=== PATIENT | male | born 1930 | race Caucasian/White ===

== ENCOUNTER 2018-06-05 20:50 | Inpatient (IN) | payer MEDICARE, OTHER ==
[2018-06-05 21:29] LABS: #Eosinphils 0.1 thou/uL (0.0-0.7); #Lymphocytes 1.6 thou/uL (1.20-3.40); #Monocytes 0.4 thou/uL (0.11-0.59); #Neutrophils 3.2 thou/uL (1.40-6.50); %Basophils 0.5 % (0.0-1.0); %Eosinophils 2.8 % (0.0-10.0); %Lymphocytes 29.9 % (21.0-51.0); %Neutrophils 58.8 % (42.0-75.0); Hemoglobin 13.3 g/dL (14.0-18.0); Mean Corpuscular HGB CONC 33.8 g/dL (32.0-36.0); Mean Corpuscular Hemoglobin 33.4 pg (27.0-31.0); Mean Corpuscular Volume 98.9 fL (78.0-98.0); Platelet Count 118 thou/uL (130-400); RBC Distribution Width 14.4 % (11.5-14.5); Red Blood Cell (RBC) Count 3.99 mill/uL (4.70-6.10); White Blood Cell (WBC) Count 5.4 thou/uL (4.8-10.8)
[2018-06-05 21:53] LABS: ALT (SGPT) 33 U/L (8-55); AST (SGOT) 27 U/L (5-34); Albumin 4.1 g/dL (3.4-4.8); Alkaline Phosphatase 79 U/L (40-150); Anion Gap 13 mmol/L (10-20); BUN (Urea Nitrogen) 32 mg/dL (8.4-25.7); Bilirubin, Total 0.8 mg/dL (0.2-1.2); Calc. Creatinine Clearance 0 mL/min (70-130); Calcium 8.8 mg/dL (7.8-10.44); Carbon Dioxide 22 mmol/L (23-31); Chloride 108 mmol/L (98-107); Estimated GFR-MDRD 38; Globulin 2.2 g/dL (2.4-3.5); Glucose 130 mg/dL (83-110); Potassium 4.2 mmol/L (3.5-5.1); Protein, Total 6.3 g/dL (5.8-8.1); Sodium 139 mmol/L (136-145)
[2018-06-05 21:54] LABS: CKMB 4.6 ng/mL (0-6.6); Troponin I 0.023 ng/mL (< 0.028)
--- NOTE | 2018-06-05 21:59 | RAD ---
CHEST ONE VIEW: 06/05/18 HISTORY: Dyspnea. FINDINGS: No comparison. The cardiac silhouette is magnified. Pulmonary vasculature is engorged with patchy bilateral perihila r and bibasilar infiltrates. No lobar consolidation or evidence of pneumothorax. Mediastinum is midli ne with aortic calcification. IMPRESSION: Pulmonary vascular congestion with bibasilar infiltrates. No evidence of cardiomegaly. Atherosclerosis. POS: BST
[2018-06-05] MEDS ORDERED: Nitroglycerin 2% Ointment 1 INCH/1 GM Packet ONE (22:02)
[2018-06-05] MEDS ORDERED: Furosemide 40 MG/4 ML VIAL ONE (22:02)
[2018-06-06 00:55] VITALS: BMI 25.9
--- NOTE | 2018-06-06 03:58 | HP ---
DATE OF ADMISSION: 06/05/2018 CHIEF COMPLAINT: Shortness of breath. HISTORIAN: Patient reliable. HISTORY OF PRESENT ILLNESS: This is an 88-year-old male with past medical history of CHF, which was diagnosed a month ago, coronary artery disease, status post cardiac catheterization, hypertension, hyperlipidemia, cholesterol who is presenting with shortness of breath which has been ongoing for the past month. The patient's shortness of breath has been ongoing for a month and in the past 2 weeks, it has progressively gotten worse and that prompted ED visit. Patient states that in addition to the shortness of breath, he also had associated symptoms of chest palpitations and states that his heart rate has always been fast. Per medical records, patient was recently started on carvedilol and patient has not really been compliant with the carvedilol. Per the ED notes, daughter states patient recently had a cardiac catheterization which showed no blockages, and patient actually has an appointment with Dr. Stallworth tomorrow; however, patient developed shortness of breath; therefore, the patient was brought in to the emergency room. Patient denies any fever, nausea , vomiting, chest pain, chills, dizziness, headaches. Patient denies abdominal pain, constipation, diarrhea, hematuria, hematochezia. REVIEW OF SYSTEMS: Positive for shortness of breath and chest palpitations, negative for all other ones that have stated in the HPI. PAST MEDICAL HISTORY: Patient has past medical history of congestive heart failure, hypertension, BPH, heart catheterization in 2018. PAST SURGICAL HISTORY: Patient had heart catheterization 2018. PSYCHIATRIC HISTORY: Patient has history of anxiety and depression. SOCIAL HISTORY: Patient states that he was a former smoker. He quit 10 years ago. The patient denies using alcohol or any illicit drugs. Allergies: Benzodiazipines and penicillins CURRENT MEDICATIONS: The patient takes, 1. Aspirin 81 mg oral. 2. Doxazosin 8 mg a daily. 3. Duloxetine patient takes 60 mg oral daily. 4. Finasteride patient takes 5 mg oral daily. 5. Furosemide patient takes 40 mg daily. 6. Lisinopril patient takes 40 mg daily. 7. Mirtazapine patient takes 15 mg at bedtime. 8. Simvastatin patient takes 40 mg at night. 9. Ranitidine patient takes 150 mg a day. In the ED, patient was given Cardizem IV 50 mg and patient was given nitro transdermal and patient was also given Lasix 40 mg IV push. PHYSICAL EXAMINATION: VITAL SIGNS: In the ED, the patient's blood pressure was 161/113, pulse of 119 , respiratory rate of 24, temperature of 97. On admission, the patient's blood pressure was 113/80, pulse 90, respiratory rate of 28, temperature of 97.8. GENERAL: Patient is lying in bed comfortably, not in acute distress. Patient appears his stated age, very pleasant, alert and oriented x3. HEENT: Normocephalic, atraumatic. Pupils are equally round and reactive to light. Extraocular motors are intact. No scleral icterus is noted. NECK: Trachea is midline, supple. No JVD. RESPIRATORY: Clear to auscultation bilaterally. No wheezing, no rales, no rhonchi is appreciated. The patient has good symmetric chest movement. CARDIOVASCULAR: Patient is slightly tachycardic. Rhythm is irregularly irregular. ABDOMEN: Soft, nontender, nondistended, no pulsatile mass. No peritoneal signs , no rigidity, no guarding, no rebound. EXTREMITIES: The patient has 5/5 in the upper extremity strength and good pulses at the upper extremity. Lower extremity 5/5, lower extremity strength. Full range of motion and good pulses at the dorsalis pedis. No edema noted. NEUROLOGIC: No focal neurologic deficit noted. SKIN: Warm, dry, and intact. PSYCHIATRIC: Patient has normal affect. LABORATORY DATA AND X-RAY FINDINGS: Patient's BNP is 2812. Chemistry: Sodium is 139, potassium is 4.2, chloride is 108, carbon dioxide is 22, BUN is 32, creatinine is 1.73, glucose 130. CBC: White blood cell count is 5.4, hemoglobin is 13.3, hematocrit of 39.4, platelets 118. Chest x-ray showed bibasilar infiltrates with some cardiopulmonary congestion. ASSESSMENT AND PLAN: 1. Acute on chronic systolic heart failure per records, patient had an ejection fraction of 34 on previous echo. At this point, we will get Cardiology consult. The patient has been given IV Lasix. We will continue to monitor the patient. 2. Atrial fibrillation with rapid ventricular response. We will give patient as home dose of carvedilol. We will monitor the patient closely. At this point , patient has received Cardizem 50 mg. We will monitor the patient's heart rate on telemetry. 3. Acute on chronic renal failure. Patient's creatinine at this time is 1.7. Nephrology has been consulted. We will follow Nephrology's recommendations. We will follow up morning BNP. 4. History of hypertension. We will monitor patient's blood pressure closely. We will continue the patient on carvedilol. 5. History of benign prostatic hypertrophy. We will start the patient on his oral BPH medications. At this point, the patient is doing well and patient is stable. 6. Hyperlipidemia. We will continue patient on simvastatin. 7. History of anxiety and depression. Patient is currently stable. We will monitor the patient. MTDD
[2018-06-06] MEDS ORDERED: Melatonin 3 MG TAB PO PRN (04:44)
[2018-06-06 05:33] LABS: Bilirubin Negative (Negative); Blood, Urine Negative (Negative); Glucose, Urine (Dipstick) Negative (Negative); Leukocyte Negative (Negative); Nitrite Negative (Negative); Protein, Urine (Dipstick) Negative (Neg-Trace); Urobilinogen 0.2 mg/dL (0.2-1.0)
[2018-06-06 05:34] LABS: Clarity Clear (Clear)
[2018-06-06 05:39] LABS: RBC/HPF None Seen HPF (0-3); Specific Gravity, Urine 1.007 (1.002-1.036); WBC/HPF None Seen HPF (0-3)
[2018-06-06 05:40] LABS: Bacteria/HPF None Seen HPF (None Seen); Crystals/HPF None Seen HPF (Negative); Hyaline Casts/LPF NONE SEEN LPF (0-3 Hyaline); Other Casts/LPF None Seen LPF (0-3 Hyaline); Renal Epithelial None Seen HPF (0-3); Squamous Epithelial None Seen HPF (0-3); Transitional Epithelial NONE SEEN HPF (0-3); Trichomonas/HPF None Seen HPF (None Seen); Yeast-All Forms None Seen HPF (None Seen)
[2018-06-06 06:22] LABS: #Eosinphils 0.2 thou/uL (0.0-0.7); #Lymphocytes 1.5 thou/uL (1.20-3.40); #Monocytes 0.6 thou/uL (0.11-0.59); #Neutrophils 3.1 thou/uL (1.40-6.50); %Basophils 0.7 % (0.0-1.0); %Eosinophils 3.8 % (0.0-10.0); %Lymphocytes 27.4 % (21.0-51.0); %Monocytes 10.2 % (0.0-10.0); Hemoglobin 12.2 g/dL (14.0-18.0); Mean Corpuscular HGB CONC 33.5 g/dL (32.0-36.0); Mean Corpuscular Hemoglobin 33.2 pg (27.0-31.0); Mean Platelet Volume 8.1 fL (7.4-10.4); Platelet Count 119 thou/uL (130-400); RBC Distribution Width 14.3 % (11.5-14.5); Red Blood Cell (RBC) Count 3.68 mill/uL (4.70-6.10); White Blood Cell (WBC) Count 5.4 thou/uL (4.8-10.8)
[2018-06-06 06:26] LABS: ALT (SGPT) 30 U/L (8-55); AST (SGOT) 22 U/L (5-34); Albumin 3.8 g/dL (3.4-4.8); Alkaline Phosphatase 71 U/L (40-150); Anion Gap 15 mmol/L (10-20); BUN (Urea Nitrogen) 30 mg/dL (8.4-25.7); Calc. Creatinine Clearance 42 mL/min (70-130); Carbon Dioxide 21 mmol/L (23-31); Chloride 107 mmol/L (98-107); Estimated GFR-MDRD 42; Globulin 2.1 g/dL (2.4-3.5); Glucose 108 mg/dL (83-110); Potassium 3.8 mmol/L (3.5-5.1); Protein, Total 5.9 g/dL (5.8-8.1); Sodium 139 mmol/L (136-145)
[2018-06-06] MEDS ORDERED: Acetaminophen 325 MG TAB PO PRN (06:41)
[2018-06-06] MEDS: Lisinopril 20 MG TAB PO SCH (09:46)
[2018-06-06] MEDS: Carvedilol 6.25 MG TAB PO SCH ×2 (09:47→20:47)
[2018-06-06] MEDS ORDERED: guaiFENesin ER 600 MG TAB PO SCH (12:15)
--- NOTE | 2018-06-06 13:20 | CON ---
DATE OF CONSULTATION: 06/06/2018 This encompass 70 minutes time, of that time, greater than 50% of the time was spent with the patient and/or on the patient's unit in the hospital. CONSULTING PHYSICIAN: Dr. Lance from the Hospitalist group. REASON FOR CONSULTATION: Shortness of breath. HISTORY OF PRESENT ILLNESS: This is an 88-year-old male who was admitted to the hospital last night with increasing shortness of breath of about 24 hours duration. He has recently been diagnosed with congestive heart failure. That workup was done at [facility]. He was told his ejection fraction was about 35%. He is upset because he did not have anything that could be fixed with tay ry stenting, pacemaker, etc. He was told this had to be medically managed. He did not tolerate the medical therapy very well. He did not adhere to salt restriction or fluid restriction at home. He i s under the impression that drinking lots of water would be good for him. He does have a previous history of smoking about one to one-half packs per day. He has never been di agnosed with COPD, emphysema, or asthma. PAST MEDICAL HISTORY: 1. Congestive heart failure. 2. Hypertension. 3. Prostatic hypertrophy. PAST SURGICAL HISTORY: Cardiac catheterization. MEDICATIONS PRIOR TO ADMISSION: Doxazosin, aspirin, duloxetine, finasteride, furosemide, lisinopril, mirtazapine, simvastatin, ranitidine. SOCIAL HISTORY: Quit smoking over 10 years ago, quit drinking many years ago. He is a retired manag er. REVIEW OF SYSTEMS: Twelve point review of systems is otherwise negative. PHYSICAL EXAMINATION: VITAL SIGNS: Temperature 98.1, pulse 90, respirations 20, O2 sat 93%, blood pressure 133/96. GENERAL: The patient is awake, alert, very vocal. HEENT: Pupils react. Sclerae anicteric. Oropharynx clear. NECK: Without adenopathy or JVD. CHEST: Clear without wheezing or rhonchi. CARDIAC: S1, S2 regular, without murmur. ABDOMEN: Soft, nontender, nondistended. EXTREMITIES: No clubbing, cyanosis or edema. NEUROLOGIC: Fully intact throughout. LABORATORY DATA: White blood cell count 5.4, hematocrit 36.4, platelet count 119. Sodium 139, potas sium 3.8, chloride 107, CO2 21, BUN 30, creatinine 1.5, glucose 108. BNP 2812. X-RAY FINDINGS: Chest x-ray showed bilateral congestive changes, probably has bilateral small pleura l effusions. ASSESSMENT: 1. Congestive heart failure. 2. Former tobacco abuse. RECOMMENDATIONS: I would recommend treatment of congestive heart failure as you are doing. At some point as an outpatient, he may need to get PFTs to further workup for COPD. Right now, PFTs would no t give an accurate reading due to the patient's pulmonary vascular congestion. The patient has reque sted a second opinion from Cardiology, which I think has been requested by the Hospitalist team. I w ill be happy to see him on an outpatient as needed.
--- NOTE | 2018-06-06 13:37 | PDOC.PN ---
- Subjective Encounter Start Date: 06/06/18 Encounter Start Time: 09:00 -: old records requested/rev Pt seen and examined, chart reviewed in its entirety, this is my first visit with this patient admitted last night by sitecore developer for SOB. Pt described several day history of SOB, increasing cough and whitish sputum production. In Er, noted to be in Afib with RVr, pt denies history of afib prior. Admitted, Cardiology consulted. Pt denies f/C, no N/V/D/C, cotninues to cough up thick whitis phlegm. no blood. Denies CP or current SOb, urinating well, no palpitations all systesm reviewed and neg x as per HPI - Objective MAR Reviewed: Yes Vital Signs & Weight: Vital Signs (12 hours) Temp Pulse Resp BP Pulse Ox 06/06/18 11:56 97.9 F 87 20 124/86 94 L 06/06/18 08:05 98.1 F 98 20 93 L 06/06/18 08:00 98.1 F 98 20 133/96 H 93 L 06/06/18 04:29 97.5 F L 82 20 123/85 92 L Weight Weight 196 lb 12.8 oz I&O: 06/05/18 06/06/18 06/07/18 06:59 06:59 06:59 Intake Total 130 Output Total 370 Balance -240 Result Diagrams: 06/06/18 03:30 06/06/18 03:30 Radiology Reviewed by me: Yes EKG Reviewed by me: Yes Phys Exam - Physical Examination Constitutional: NAD HEENT: PERRLA, moist MMs, sclera anicteric, oral pharynx no lesions Neck: no nodes, no JVD, supple, full ROM Respiratory: no wheezing, no rales, no rhonchi, clear to auscultation bilateral Cardiovascular: no significant murmur, irregular slightly tachycardic Gastrointestinal: soft, non-tender, no distention, positive bowel sounds Musculoskeletal: pulses present, edema present Neurological: non-focal, normal sensation, moves all 4 limbs Lymphatic: no nodes Psychiatric: normal affect, A&O x 3 Skin: no rash, normal turgor, cap refill <2 seconds Dx/Plan (1) Atrial fibrillation with RVR Code(s): I48.91 - UNSPECIFIED ATRIAL FIBRILLATION Status: Acute (2) ADI (acute kidney injury) Code(s): N17.9 - ACUTE KIDNEY FAILURE, UNSPECIFIED Status: Acute (3) HTN (hypertension) Code(s): I10 - ESSENTIAL (PRIMARY) HYPERTENSION Status: Chronic Qualifiers: Hypertension type: essential hypertension Qualified Code(s): I10 - Essential (primary) hypertension (4) Acute on chronic diastolic (congestive) heart failure Code(s): I50.33 - ACUTE ON CHRONIC DIASTOLIC (CONGESTIVE) HEART FAILURE Status : Acute (5) HLD (hyperlipidemia) Code(s): E78.5 - HYPERLIPIDEMIA, UNSPECIFIED Status: Chronic Qualifiers: Hyperlipidemia type: unspecified Qualified Code(s): E78.5 - Hyperlipidemia , unspecified (6) Anxiety Code(s): F41.9 - ANXIETY DISORDER, UNSPECIFIED Status: Chronic - Plan * . annelise, cardiology consult, need an exco ot ACE. rate at 100s
--- NOTE | 2018-06-06 15:03 | CON ---
DATE OF CONSULTATION: 06/06/2018 CONSULTING PHYSICIAN: Dr. Lance. REASON FOR CONSULTATION: Acute kidney injury. REASON FOR ADMISSION: Shortness of breath. HISTORY OF PRESENT ILLNESS: This is an 88-year-old white male with a history of congestive heart failure and hypertension, who came to the hospital with shortness of breath and was evaluated for CHF exacerbation. Nephrology was consulted for acute kidney injury with elevated creatinine and the patient was given IV Lasix and is better and patient is feeling better. No chest pain or palpitation reported. No fever or chills. No nausea, vomiting, diarrhea. PAST MEDICAL HISTORY: Positive for CHF, hypertension, heart catheterization, BPH. PAST SURGICAL HISTORY: Heart catheterization. HOME MEDICATIONS: Aspirin, doxazosin, duloxetine, finasteride, furosemide, lisinopril and mirtazapine, simvastatin, and ranitidine. ALLERGIES: BENZODIAZEPINES and PENICILLIN. SOCIAL HISTORY: No smoking or alcohol. FAMILY HISTORY: No history of any kidney disease. REVIEW OF SYSTEMS: The following complete review of systems was negative, unless otherwise mentioned in the HPI or below: Constitutional: Weight loss or gain, ability to conduct usual activities. Skin: Rash, itching. Eyes: Double vision, pain. ENT/Mouth: Nose bleeding, neck stiffness, pain, tenderness. Cardiovascular: Palpitations, dyspnea on exertion, orthopnea. Respiratory: Shortness of breath, wheezing, cough, hemoptysis, fever, or night sweats. Gastrointestinal: Poor appetite, abdominal pain, heartburn, nausea, vomiting, constipation, or diarrhea. Genitourinary: Urgency, frequency, dysuria, nocturia. Musculoskeletal: Pain, swelling. Neurologic/Psychiatric: Anxiety, depression. Allergy/Immunologic: Skin rash, bleeding tendency. PHYSICAL EXAMINATION: GENERAL: This is a well-built male in no apparent distress. VITAL SIGNS: Temperature 97.9, pulse 87, respiratory rate 18, blood pressure __ ___. HEENT: Atraumatic, normocephalic. Oral mucosa is moist. NECK: Supple, no masses. CARDIOVASCULAR: S1 and S2 heard. Rate and rhythm regular. RESPIRATORY: Clear DERMATOLOGIC: No skin rash. NEUROLOGIC: Alert, awake. PSYCHIATRIC: Normal mood and affect. LABORATORY: Hemoglobin is 10.2, potassium is 3.8, BUN 17, creatinine is 1.5. ASSESSMENT AND PLAN: 1. Acute kidney injury, most likely cardiorenal syndrome. Creatinine is getting better, 1.5 from 1.7 with Lasix. Continue Lasix with close monitoring of electrolytes and renal function. 2. Metabolic acidosis, stable. 3. Cardiorenal syndrome, stable. 4. Edema, controlled. 5. Anemia, mild. 6. Hypertension. We will monitor. 7. Renal function getting better with IV Lasix. Continue current management and monitor renal function. Thank you for the consult. Avoid nephrotoxins. MTDD
--- NOTE | 2018-06-06 16:10 | CON ---
DATE OF CONSULTATION: 06/06/2018 REASON FOR CONSULTATION: Acute on chronic systolic heart failure. HISTORY OF PRESENT ILLNESS: Mr. Ricardo is an 88-year-old gentleman who recently presented with CHF typ e symptoms. He recently was seen and evaluated by Dr. Zuleta at [facility]. He had a full work up including echo with Doppler showing low LVEF estimated at 35%-40% in addition to angiography that showed no significant coronary artery disease. He states since his angiogram negative, he stopped al l his medications per his daughter. He stopped his Lasix, Coreg, and JARON inhibitor therapy. He ther efore became volume overloaded, presented to the emergency room with the above. PAST MEDICAL HISTORY: Alcohol abuse, cocaine abuse, recent diagnosis of nonischemic cardiomyopathy, BPH, anxiety and depression. CURRENT MEDICATIONS: Include Zocor and ranitidine. SOCIAL HISTORY: No current tobacco or alcohol use. REVIEW OF SYSTEMS: Ten-point review of systems was reviewed as above, otherwise negative. PHYSICAL EXAMINATION: GENERAL: Patient is a pleasant male/female who is in no acute distress. The patient appears his/her stated age. VITAL SIGNS: Blood pressure 135/68, pulse 86, temperature 97.3. NEUROLOGIC: The patient is alert and oriented times 3 with no focal neurologic deficits. HEENT: Sclerae without icterus. Mouth has moist mucous membranes with normal pallor. NECK: No JVD. Carotid upstroke brisk. No bruits bilaterally. LUNGS: Clear to auscultation with unlabored respirations. BACK: No scoliosis or kyphosis. CARDIAC: Regular rate and rhythm with normal S1 and S2. No S3 or S4 noted. No significant rubs, murmurs, thrills, or gallops noted throughout the precordium. PMI is not displaced. There is no parasternal heave. Crackles noted bilaterally. ABDOMEN: Soft, nontender, nondistended. No peritoneal signs present. No hepatosplenomegaly. No abnormal striae. EXTREMITIES: 2+ femoral and 2+ dorsalis pedis pulses. No cyanosis, clubbing, or edema. SKIN: No gross abnormalities. PERTINENT LABORATORY DATA: Hemoglobin 12.2, creatinine 1.58, BNP of 2012. IMPRESSION: Acute on chronic systolic heart failure. RECOMMENDATIONS: Mr. Ricardo's current symptoms likely is secondary to noncompliance. Reassurance and education at this point are important on his current condition and the importance of medical therapy. We will continue with Lasix, beta elpidio therapy and JARON inhibitor therapy. Nephrology has been c onsulted due to chronic kidney disease. At this point, he appears comfortable. Anticipate discharge in 1-2 days.
[2018-06-06] MEDS ORDERED: Furosemide 40 MG/4 ML VIAL SLOW IVP SCH (18:00)
[2018-06-06] MEDS: guaiFENesin ER 600 MG TAB PO SCH (20:47)
[2018-06-06] MEDS ORDERED: Atorvastatin Calcium 20 MG TAB PO SCH (21:00)
[2018-06-06] MEDS ORDERED: Doxazosin 2 MG TAB PO SCH (21:00)
[2018-06-06] MEDS ORDERED: Mirtazapine 15 MG TAB PO SCH (21:00)
[2018-06-07 05:53] LABS: Anion Gap 14 mmol/L (10-20); BUN (Urea Nitrogen) 32 mg/dL (8.4-25.7); Calc. Creatinine Clearance 41 mL/min (70-130); Calcium 8.7 mg/dL (7.8-10.44); Carbon Dioxide 24 mmol/L (23-31); Chloride 105 mmol/L (98-107); Estimated GFR-MDRD 40; Glucose 115 mg/dL (83-110); Potassium 3.8 mmol/L (3.5-5.1); Sodium 139 mmol/L (136-145)
[2018-06-07 05:55] LABS: #Eosinphils 0.2 thou/uL (0.0-0.7); #Lymphocytes 1.1 thou/uL (1.20-3.40); #Monocytes 0.4 thou/uL (0.11-0.59); #Neutrophils 3.3 thou/uL (1.40-6.50); %Basophils 0.9 % (0.0-1.0); %Eosinophils 3.4 % (0.0-10.0); %Lymphocytes 21.4 % (21.0-51.0); %Monocytes 8.7 % (0.0-10.0); %Neutrophils 65.7 % (42.0-75.0); Hemoglobin 12.5 g/dL (14.0-18.0); Mean Corpuscular HGB CONC 32.7 g/dL (32.0-36.0); Mean Corpuscular Hemoglobin 32.3 pg (27.0-31.0); Mean Corpuscular Volume 98.5 fL (78.0-98.0); Mean Platelet Volume 7.8 fL (7.4-10.4); Platelet Count 114 thou/uL (130-400); RBC Distribution Width 14.1 % (11.5-14.5); Red Blood Cell (RBC) Count 3.86 mill/uL (4.70-6.10)
[2018-06-07] MEDS ORDERED: Finasteride 5 MG TAB PO SCH (09:00)
[2018-06-07] MEDS ORDERED: DULoxetine 60 MG CAP PO SCH (09:00)
[2018-06-07] MEDS ORDERED: Non-Formulary Item 1 EACH (Lisinopril [Lisinopril] 40 MG) PO SCH (09:00)
[2018-06-07] MEDS ORDERED: Simvastatin 40 MG TAB PO SCH (09:00)
[2018-06-07] MEDS ORDERED: Metoprolol Tartrate 25 MG TAB PO SCH (09:00)
[2018-06-07] MEDS: Carvedilol 6.25 MG TAB PO SCH (09:04)
[2018-06-07] MEDS: guaiFENesin ER 600 MG TAB PO SCH (09:51)
[2018-06-07] MEDS: Lisinopril 20 MG TAB PO SCH (09:52)
[2018-06-07] MEDS ORDERED: Apixaban 2.5 MG TAB PO SCH (12:00)
[2018-06-07 12:09] VITALS: TEMP 97.4
[2018-06-07] MEDS ORDERED: Sodium Chloride 0.9% 500 ML IVPB SCH (12:30)
--- NOTE | 2018-06-07 12:54 | DIS ---
PRIMARY CARE PHYSICIAN: [facility] BARREL BRANDER: Dr. Igor Hernandez DATE OF ADMISSION: 06/05/2018 DATE OF DISCHARGE: 06/07/2018 DISCHARGE DIAGNOSES: 1. Acute on chronic combined systolic and diastolic congestive heart failure. 2. New onset atrial fibrillation with rapid ventricular response. 3. Essential hypertension. 4. Acute kidney injury. 5. Benign prostatic hypertrophy. 6. Chronic kidney disease. 7. Hyperlipidemia. 8. Anxiety disorder. 9. Major depressive disorder. CONSULTATIONS: Dr. Igor Hernandez with Cardiology. PROCEDURES: None. HISTORY AND PHYSICAL: Mr. Ricardo is an 88-year-old gentleman with a 1 week history of increasing cough , shortness of breath, and sputum production presented to emergency department. He was found to be i n heart failure and atrial fibrillation with RVR and was subsequently admitted to our service. HOSPITAL COURSE: The patient was seen and examined by Dr. Brent Lance and placed on inpatient sta tus. Diuresis was begun and Cardiology was consulted. He had a recent workup at [facility] so new cardiology procedures were not ordered yet. Overnight to 06/05/2018 to 06/06/2018 he diuresed well, was breathing better and weaned off oxygen. He was seen by Cardiology who adjusted medications. He was given another dose of Lasix and overnight diuresed 1.4 liters. Today, his vitals were stable, he was started on Xarelto 2.5 b.i.d. due to advanced age and a creatin ine greater than 1.5. per Dr. Hernandez's request and the patient was otherwise stable for discharge with outpatient followup. PHYSICAL EXAMINATION: The patient was seen and examined on the day of discharge. Discharge plan discussed with the patient and his daughter face to face at the bedside. DISCHARGE MEDICATIONS: 1. New medication; metoprolol tartrate 25 mg tablets 12.5 mg p.o. b.i.d. 2. Eliquis 2.5 mg p.o. b.i.d. 3. Zocor 40 mg p.o. at bedtime. 4. Remeron 50 mg p.o. at bedtime. 5. Lisinopril 40 mg daily. 6. Lasix 40 mg daily. 7. Finasteride 5 mg daily. 8. Cymbalta 60 mg daily. 9. Cardura 8 mg p.o. at bedtime. 10. Aspirin 81 mg daily. FOLLOWUP APPOINTMENTS: 1. Primary care physician in a week. 2. Dr. Hernandez in 2 weeks. DISCHARGE CONDITION: Stable. DISPOSITION: Discharged home via private vehicle with his daughter. DISCHARGE DIET: Heart healthy diet recommended. DISCHARGE ACTIVITY: Per cardiopulmonary limits.
[2018-06-07 13:13] VITALS: BP 106/74
--- NOTE | 2018-06-07 21:37 | PRG ---
DATE OF SERVICE: 06/07/2018 SUBJECTIVE: The patient was seen and examined at bedside and overnight events noted. The patient de nies any shortness of breath or chest pain or palpitation. No history of nausea or vomiting or diarr hea or fever or chills or cramps. OBJECTIVE: GENERAL: This is an elderly male in no apparent distress. VITAL SIGNS: Temperature 97.5, pulse 74, respiratory rate 18, blood pressure 102/66. HEENT: Atraumatic, normocephalic. Oral mucosa is moist. NECK: Supple. CARDIOVASCULAR: S1, S2 heard. Rate and rhythm regular. RESPIRATORY: Clear to auscultation. GASTROINTESTINAL: Abdomen is soft. MUSCULOSKELETAL: No tenderness. No edema. DERMATOLOGIC: No skin rash. NEUROLOGIC: Alert and awake and oriented x3. No focal neurologic deficits. Moving all the extremit ies. PSYCHIATRIC: Mood and affect normal. LABORATORY DATA: Potassium is 3.8, BUN is 32, creatinine is 1.6. ASSESSMENT AND PLAN: 1. Acute kidney injury secondary to cardiorenal syndrome, stable. 2. Chronic kidney disease . 3. Edema. 4. Anemia. 5. Hypertension. 6. Cardiorenal syndrome. 7. Renal function is stable. Advised to have outpatient followup.
--- NOTE | 2018-06-16 11:51 | EKG ---
Test Reason : SOB Blood Pressure : / mmHG Vent. Rate : 114 BPM Atrial Rate : 114 BPM P-R Int : 000 ms QRS Dur : 152 ms QT Int : 374 ms P-R-T Axes : 043 129 -22 degrees QTc Int : 515 ms Atrial fibrillation Left bundle branch block Abnormal ECG No ST elevation Confirmed by MONIQUE CHEN ([id number]), video effects editor VLADISLAV ASENCIO ([id number]) on 06/16/2018 11:51:01 AM Referred By: BLAS CHEN Confirmed By:MONIQUE CHEN
== END 2018-06-07 13:38 | disposition home or self-care (01) | DRG 291 ==
LOC: ERS 20:50 → 2SE 23:01
PROVIDERS: ADMIT Internal Medicine; ATTEND Internal Medicine
DX: I13.0 Hypertensive heart and chronic kidney disease with heart failure and stage 1 through stage 4 chronic kidney disease, or unspecified chronic kidney disease (principal); I50.23 Acute on chronic systolic (congestive) heart failure; N17.9 Acute kidney failure, unspecified; I25.10 Atherosclerotic heart disease of native coronary artery without angina pectoris; E78.5 Hyperlipidemia, unspecified; N40.0 Benign prostatic hyperplasia without lower urinary tract symptoms; F41.9 Anxiety disorder, unspecified; F32.9 Major depressive disorder, single episode, unspecified; N18.9 Chronic kidney disease, unspecified; I48.91 Unspecified atrial fibrillation; D64.9 Anemia, unspecified; F10.10 Alcohol abuse, uncomplicated; F14.10 Cocaine abuse, uncomplicated; I42.9 Cardiomyopathy, unspecified; Z79.82 Long term (current) use of aspirin; Z87.891 Personal history of nicotine dependence; Z91.14 Patient's other noncompliance with medication regimen
CPT/HCPCS: 36415; 71045; 80048; 80053; 81001; 82553; 83605; 83735; 83880; 84484; 85025; 87040; 87086; 93005; 94760; 96374; 96375; J1940; J3490

== ENCOUNTER 2018-09-23 14:30 | Emergency (ER) | payer MEDICARE, OTHER ==
[2018-09-23] MEDS ORDERED: Morphine 2 MG/ML SYRINGE ONE (15:03)
--- NOTE | 2018-09-23 15:22 | RAD ---
LEFT HIP 2 VIWES: History An 88-year-old male with a history of left hip and lower back pain, hip fracture several months ago. There is bone demineralization. Left hip joint arthrosis. Small stable sclerotic focus in the subtr ochanteric region of the left femur. There is some irregularity of the left superior and inferior i schiopubic ramus, evidence for remote fracture of the left pelvis. No evidence for acute left hip fr acture. IMPRESSION: Bone demineralization. No acute left hip fracture. Remote fractures of the left superior and inferi or ischiopubic rami. Bony demineralization. Left hip joint arthrosis. A previously noted left acet abular fracture seen on prior CT is not definitely evident on this study. POS: [facility]
--- NOTE | 2018-09-23 15:24 | RAD ---
AP PELVIS 1 VIEW: HISTORY: An 88-year-old male with a history of left hip and lower back pain. FINDINGS: The previously noted left acetabular fracture is barely evident on today's study. There is some mini mal irregularity of the margin of the acetabulum. There also appear to be healing fractures of the l eft superior and inferior ischiopubic rami. Arthrosis changes with some narrowing of the left hip vickie int. No evidence for acute femoral fracture. IMPRESSION: Healing fractures of the left pelvis. No evidence for overt acute fracture. Bone demineralization. Left hip join arthrosis. POS: [facility]
== END 2018-09-23 17:14 | disposition home or self-care (01) ==
LOC: ERS 14:30
DX: M25.552 Pain in left hip (principal); I11.0 Hypertensive heart disease with heart failure; I50.9 Heart failure, unspecified; E78.5 Hyperlipidemia, unspecified; Z87.891 Personal history of nicotine dependence; Z79.899 Other long term (current) drug therapy
CPT/HCPCS: 72170; 96372; J2270

== ENCOUNTER 2018-09-27 08:53 | Observation (INO) | payer MEDICARE, OTHER ==
[2018-09-27] MEDS ORDERED: Ondansetron PF 4 MG/2 ML Vial ONE (10:58)
[2018-09-27] MEDS ORDERED: Morphine 4 MG/ML VIAL ONE ×2 (10:58→16:58)
[2018-09-27 11:21] LABS: #Eosinphils 0.3 thou/uL (0.0-0.7); #Lymphocytes 1.1 thou/uL (1.20-3.40); #Monocytes 0.5 thou/uL (0.11-0.59); #Neutrophils 4.6 thou/uL (1.40-6.50); %Basophils 0.2 % (0.0-1.0); %Eosinophils 4.9 % (0.0-10.0); %Lymphocytes 16.5 % (21.0-51.0); %Monocytes 7.6 % (0.0-10.0); %Neutrophils 70.9 % (42.0-75.0); Mean Corpuscular HGB CONC 32.6 g/dL (32.0-36.0); Mean Corpuscular Hemoglobin 29.8 pg (27.0-31.0); Mean Corpuscular Volume 91.5 fL (78.0-98.0); Mean Platelet Volume 7.3 fL (7.4-10.4); Platelet Count 215 thou/uL (130-400); RBC Distribution Width 15.1 % (11.5-14.5); Red Blood Cell (RBC) Count 2.66 mill/uL (4.70-6.10); White Blood Cell (WBC) Count 6.5 thou/uL (4.8-10.8)
[2018-09-27 11:38] LABS: ALT (SGPT) 11 U/L (8-55); AST (SGOT) 17 U/L (5-34); Albumin 3.2 g/dL (3.4-4.8); Alkaline Phosphatase 124 U/L (40-150); Anion Gap 11 mmol/L (10-20); BUN (Urea Nitrogen) 21 mg/dL (8.4-25.7); Bilirubin, Total 0.4 mg/dL (0.2-1.2); Calc. Creatinine Clearance 0 mL/min (70-130); Calcium 8.5 mg/dL (7.8-10.44); Carbon Dioxide 23 mmol/L (23-31); Chloride 109 mmol/L (98-107); Estimated GFR-MDRD 50; Globulin 2.5 g/dL (2.4-3.5); Glucose 112 mg/dL (83-110); Potassium 4.6 mmol/L (3.5-5.1); Protein, Total 5.7 g/dL (5.8-8.1); Sodium 138 mmol/L (136-145)
--- NOTE | 2018-09-27 11:41 | CT ---
ABDOMEN AND PELVIS CT SCAN WITHOUT IV CONTRAST: Date: 09/27/18 HISTORY: 88-year-old male with history of pain. FINDINGS: There is minimal posterior bilateral pleural thickening in the lower lung zones. Very small hiatal he rnia. Minimal bilateral pleural based and subpleural reticulonodular and honeycombing changes, eviden ce for some chronic change. Small nodular less than 0.5 cm low attenuation focus in the left lobe of the liver, too small to characterize. There is at least one gallstone within the gallbladder without evidence for pericholecystic fluid or fat stranding. Pancreas, spleen, and adrenal glands are unremar kable. There is an approximately 0.8 cm diameter nodular density off the superior pole of the left ki dney, which does not appear to represent a cyst, although it could possibly be a hemorrhagic cyst. Th is could represent a small solid mass. Consider 1 year follow-up evaluation in this regard. Small guzman cific focus in the right kidney, statistically a small nonobstructing right renal calculus. No eviden ce for obstructing calculus. Normal appearing appendix. Heterogeneous bone demineralization with s pondylosis of the lumbar spine, particularly at L4-L5. Urinary bladder is unremarkable. No free intra peritoneal fluid or evidence for retroperitoneal hematoma. No evidence for adenopathy. There is evide nce for healing fractures involving the left sacral ala. Comminuted, somewhat displaced acetabular fr actures, particularly superiorly, slightly comminuted fracture of the left ischiopubic ramus, and two fractures of the left inferior ischiopubic ramus, all of which appear to be healing. Moderate solid fecal material within the rectum. IMPRESSION: 1. Minimal bilateral pleural thickening and some pleural based more chronic appearing parenchymal ch anges. 2. Probable gallstone without evidence for acute cholecystitis. 3. Small hypodensity in left lobe of liver, too small to characterize. 4. Small, nonobstructing right renal calculus. 5. 0.8 cm diameter nodular focus off the upper pole of the left kidney, having more the appearance o f a solid mass. A 1 year follow-up is recommended. 6. Moderate fecal material within the colon, including dilated rectum. 7. No evidence for acute appendicitis. 8. Bone demineralization with spondylosis, particularly at L4-L5. 9. Healing left-sided pelvic fractures. POS: [facility] [place]
[2018-09-27 12:25] LABS: Bilirubin Negative (Negative); Blood, Urine Negative (Negative); Clarity CLEAR (Clear); Glucose, Urine (Dipstick) Negative (Negative); Leukocyte Negative (Negative); Nitrite Negative (Negative); Protein, Urine (Dipstick) Negative (Neg-Trace); Specific Gravity, Urine 1.009 (1.002-1.036); Urobilinogen 0.2 mg/dL (0.2-1.0); pH, Urine 6.5 (5.0-9.0)
[2018-09-27 15:05] LABS: Hemoglobin 7.9 g/dL (14.0-18.0)
[2018-09-27] MEDS ORDERED: Ondansetron PF 4 MG/2 ML Vial IVP PRN (16:04)
[2018-09-27] MEDS ORDERED: Pantoprazole 40 MG VIAL IVP SCH (16:04)
[2018-09-27] MEDS ORDERED: Ondansetron ODT 4 MG TAB PO PRN (16:04)
[2018-09-27] MEDS ORDERED: Acetaminophen 650 MG Suppository PR PRN (16:04)
[2018-09-27 16:33] LABS: Hemoglobin 7.8 g/dL (14.0-18.0)
[2018-09-27 17:46] VITALS: BMI 24.3
[2018-09-27] MEDS: Carvedilol 3.125 MG TAB PO SCH (19:35)
[2018-09-27] MEDS: Mirtazapine 15 MG TAB PO SCH (19:35)
[2018-09-27] MEDS: Doxazosin 2 MG TAB PO SCH (19:35)
[2018-09-27] MEDS: Sodium Chloride 0.9% 1,000 ML IV SCH (19:37)
[2018-09-27] MEDS: Pantoprazole 40 MG VIAL IVP SCH (19:37)
[2018-09-27 22:29] LABS: Hemoglobin 7.6 g/dL (14.0-18.0)
[2018-09-28] MEDS: Acetaminophen 325 MG TAB PO PRN ×2 (03:19→10:01)
[2018-09-28] MEDS: Sodium Chloride 0.9% 1,000 ML IV SCH ×2 (04:10→18:11)
[2018-09-28] MEDS ORDERED: Morphine 2 MG/ML SYRINGE SLOW IVP SCH (04:15)
[2018-09-28 04:26] LABS: #Eosinphils 0.5 thou/uL (0.0-0.7); #Lymphocytes 1.3 thou/uL (1.20-3.40); #Monocytes 0.7 thou/uL (0.11-0.59); #Neutrophils 3.9 thou/uL (1.40-6.50); %Basophils 0.2 % (0.0-1.0); %Eosinophils 8.3 % (0.0-10.0); %Lymphocytes 19.5 % (21.0-51.0); %Monocytes 11.5 % (0.0-10.0); %Neutrophils 60.5 % (42.0-75.0); Hemoglobin 7.8 g/dL (14.0-18.0); Mean Corpuscular HGB CONC 33.5 g/dL (32.0-36.0); Mean Corpuscular Hemoglobin 31.3 pg (27.0-31.0); Mean Corpuscular Volume 93.4 fL (78.0-98.0); Mean Platelet Volume 7.5 fL (7.4-10.4); Platelet Count 196 thou/uL (130-400); RBC Distribution Width 15.2 % (11.5-14.5); White Blood Cell (WBC) Count 6.4 thou/uL (4.8-10.8)
[2018-09-28 04:36] LABS: Anion Gap 8 mmol/L (10-20); BUN (Urea Nitrogen) 20 mg/dL (8.4-25.7); Calc. Creatinine Clearance 45 mL/min (70-130); Calcium 8.2 mg/dL (7.8-10.44); Carbon Dioxide 23 mmol/L (23-31); Chloride 111 mmol/L (98-107); Estimated GFR-MDRD 49; Glucose 109 mg/dL (83-110); Potassium 4.4 mmol/L (3.5-5.1); Sodium 138 mmol/L (136-145)
[2018-09-28] MEDS: DULoxetine 60 MG CAP PO SCH (07:35)
[2018-09-28] MEDS: Pantoprazole 40 MG VIAL IVP SCH ×2 (07:35→20:25)
[2018-09-28] MEDS: Finasteride 5 MG TAB PO SCH (07:35)
[2018-09-28] MEDS: Carvedilol 3.125 MG TAB PO SCH ×2 (07:35→20:25)
--- NOTE | 2018-09-28 14:04 | CON ---
DATE OF CONSULTATION: HISTORY OF PRESENT ILLNESS: The patient is an 88-year-old male, who was in his normal state of health until 2 weeks prior to admission when he developed some black tarry stool. This black tarry stool lasted for approximately 4 to 5 days, and he saw a physician and his Eliquis was stopped. The patient has been using 6 to 8 Advil per day for chronic low back pain. He is unsure of the reason he is on Eliquis. PAST MEDICAL HISTORY: Significant for congestive heart failure, coronary artery disease, pacemaker placement, hypertension, hyperlipidemia, BPH. PAST SURGICAL HISTORY: Heart catheterization, pacemaker placement, several orthopedic surgeries. SOCIAL HISTORY: He stopped smoking last year. He quit drinking many years ago. ALLERGIES: INCLUDE BENZODIAZEPINE AND PENICILLIN. MEDICATIONS: Include, 1. Lasix 40 mg p.o. daily. 2. Finasteride 5 mg p.o. daily. 3. Cardura 8 mg p.o. nightly. 4. Cymbalta 60 mg p.o. daily. 5. Coreg 3.125 mg p.o. b.i.d. 6. Eliquis 2.5 mg p.o. b.i.d., which was stopped 2 weeks ago. 7. Simvastatin 40 mg p.o. daily. 8. Remeron 15 mg p.o. daily. 9. Lisinopril 40 mg p.o. daily. FAMILY HISTORY: Negative for GI or liver disease. REVIEW OF SYSTEMS: CONSTITUTIONAL: No fevers or chills. No weight loss. HEENT: Eyes, no blurred vision or double vision. ENT, no sore throat or earaches. CARDIOVASCULAR: No chest pain or palpitations. PULMONARY: Positive for shortness of breath. Positive for dyspnea on exertion. GI: See above. : No hematuria or dysuria. MUSCULOSKELETAL: No joint pain or muscle weakness. SKIN: No rashes. NEUROLOGIC: No numbness or seizure activity. PHYSICAL EXAMINATION: GENERAL: Shows a pale, elderly white male, in no acute distress. VITAL SIGNS: Temperature 98.3, pulse 91, respiratory rate 16, and blood pressure 129/78. HEENT: Unremarkable. NECK: Supple. CHEST: Clear. CARDIOVASCULAR: Regular rate and rhythm. ABDOMEN: Soft, nontender, without organomegaly or masses. Bowel sounds are present, normoactive. RECTAL: Deferred. EXTREMITIES: Normal. NEUROLOGIC: Nonfocal. LABORATORY DATA: Laboratories show a hemoglobin of 8.0, looking back in June, hemoglobin was 13.4. Chemistry significant for glucose of 112, creatinine 1.35, albumin 3.2. Abdominal and pelvic CT showed probable gallstone, bilateral pleural thickening, moderate fecal material within the colon including some dilated rectum, healing left-sided pelvic fractures. ASSESSMENT: 1. Melena. 2. Symptomatic anemia. 3. History of congestive heart failure. 4. Atrial fibrillation, formerly on Eliquis. 5. Chronic low back pain, on NSAIDs. RECOMMENDATIONS: 1. PPI. 2. Serial H and H. 3. EGD. Job ID: [id number]
[2018-09-28] MEDS ORDERED: PROPOFOL 200 MG/20 ML VIAL ONE (15:57)
[2018-09-28] MEDS ORDERED: Lidocaine 1% PF 5 ML VIAL ONE (15:57)
--- NOTE | 2018-09-28 17:18 | PDOC.PN ---
- Subjective Encounter Start Date: 09/28/18 Encounter Start Time: 17:15 Subjective: pain at the end of the spine, tail bone. Cannot walk due to pain. Pain S/P -: hip fracture was slowly getting better. Patient underwent PT and now he -: has pain in the lower back. Also complains of Melena - Objective Resuscitation Status - Order Detail: 09/27/18 14:53 Resuscitation Status Routine Resuscitation Status: FULL: Full Resuscitation Vital Signs & Weight: Vital Signs (12 hours) Temp Pulse Resp BP Pulse Ox 09/28/18 08:03 98.3 F 91 16 129/78 96 09/28/18 08:00 96 Weight Admit Weight 184 lb 5 oz Weight 184 lb 5 oz I&O: 09/27/18 09/28/18 09/29/18 06:59 06:59 06:59 Intake Total 1240 Output Total 400 Balance 1240 -400 Result Diagrams: 09/28/18 03:59 09/28/18 03:59 Phys Exam - Physical Examination HEENT: PERRLA, moist MMs, sclera anicteric, TM's clear, oral pharynx no lesions , 2+ tonsils Neck: no nodes, no JVD, supple, full ROM Respiratory: no wheezing, no rales Cardiovascular: RRR, no significant murmur, no rub Gastrointestinal: soft, non-tender, no distention, positive bowel sounds pain in lower back with ROM tip of the tail bone pain with movement Psychiatric: normal affect, A&O x 3 Dx/Plan (1) Back pain at L4-L5 level Code(s): M54.5 - LOW BACK PAIN Status: Acute (2) GI bleed Code(s): K92.2 - GASTROINTESTINAL HEMORRHAGE, UNSPECIFIED Status: Acute Qualifiers: GI bleed type/associated pathology: melena Qualified Code(s): K92.1 - Melena Comment: Patient on Apixaban for afib and now presenting with hemeoccult stool and anemia. (3) Acute on chronic diastolic (congestive) heart failure Code(s): I50.33 - ACUTE ON CHRONIC DIASTOLIC (CONGESTIVE) HEART FAILURE Status : Acute (4) CKD (chronic kidney disease) Code(s): N18.9 - CHRONIC KIDNEY DISEASE, UNSPECIFIED Status: Chronic Qualifiers: Chronic kidney disease stage: stage 3 (moderate) Qualified Code(s): N18.3 - Chronic kidney disease, stage 3 (moderate) Comment: Avoid nephrotoxic meds and limit contrast exposure (5) HLD (hyperlipidemia) Code(s): E78.5 - HYPERLIPIDEMIA, UNSPECIFIED Status: Chronic Qualifiers: Hyperlipidemia type: unspecified Qualified Code(s): E78.5 - Hyperlipidemia , unspecified (6) HTN (hypertension) Code(s): I10 - ESSENTIAL (PRIMARY) HYPERTENSION Status: Chronic Qualifiers: Hypertension type: essential hypertension Qualified Code(s): I10 - Essential (primary) hypertension (7) Acute blood loss anemia Code(s): D62 - ACUTE POSTHEMORRHAGIC ANEMIA Status: Acute Comment: Patient on Eliquis at home. Hold it for now, trend Hb. Plans for EGD today. Transfuse as needed - Plan cont current plan of care, plan discussed w/ family, PT/OT, DVT proph w/SCDs * .
[2018-09-28] MEDS ORDERED: traMADol HCl 50 MG TAB PO PRN (17:26)
[2018-09-28] MEDS: Doxazosin 2 MG TAB PO SCH (20:25)
[2018-09-28] MEDS: Mirtazapine 15 MG TAB PO SCH (20:25)
[2018-09-28] MEDS ORDERED: Guaifenesin DM 100-10/5 ML UDCUP PO PRN (20:49)
[2018-09-28] MEDS ORDERED: Calcium Carbonate 500 MG ChewTAB PO PRN (20:49)
[2018-09-28] MEDS ORDERED: Senokot S 8.6-50 MG TAB PO PRN (20:49)
[2018-09-28] MEDS ORDERED: Bisacodyl 5 MG TAB PO PRN (20:49)
[2018-09-28] MEDS ORDERED: Zolpidem Tartrate 5 MG TAB PO PRN (20:49)
[2018-09-28] MEDS ORDERED: Famotidine/PF 20 mg/2ml Vial SLOW IVP SCH (21:00)
[2018-09-28] MEDS ORDERED: Famotidine 20 MG TAB PO SCH (21:00)
[2018-09-28] MEDS: Morphine 2 MG/ML SYRINGE SLOW IVP PRN (21:15)
[2018-09-29] MEDS: Sodium Chloride 0.9% 1,000 ML IV SCH (04:14)
[2018-09-29] MEDS: Morphine 2 MG/ML SYRINGE SLOW IVP PRN ×3 (05:44→14:48)
[2018-09-29] MEDS: Finasteride 5 MG TAB PO SCH (09:09)
[2018-09-29] MEDS: DULoxetine 60 MG CAP PO SCH (09:09)
[2018-09-29] MEDS: Carvedilol 3.125 MG TAB PO SCH (09:09)
[2018-09-29] MEDS: Pantoprazole 40 MG VIAL IVP SCH (09:09)
[2018-09-29 09:45] LABS: #Eosinphils 0.4 thou/uL (0.0-0.7); #Lymphocytes 1.5 thou/uL (1.20-3.40); #Monocytes 0.6 thou/uL (0.11-0.59); %Basophils 0.6 % (0.0-1.0); %Eosinophils 5.7 % (0.0-10.0); %Lymphocytes 23.5 % (21.0-51.0); %Neutrophils 61.1 % (42.0-75.0); Hemoglobin 8.8 g/dL (14.0-18.0); Mean Corpuscular HGB CONC 32.8 g/dL (32.0-36.0); Mean Corpuscular Hemoglobin 30.4 pg (27.0-31.0); Mean Corpuscular Volume 92.6 fL (78.0-98.0); Mean Platelet Volume 7.4 fL (7.4-10.4); Platelet Count 223 thou/uL (130-400); RBC Distribution Width 15.4 % (11.5-14.5); Red Blood Cell (RBC) Count 2.88 mill/uL (4.70-6.10); White Blood Cell (WBC) Count 6.6 thou/uL (4.8-10.8)
[2018-09-29 10:03] LABS: Anion Gap 14 mmol/L (10-20); BUN (Urea Nitrogen) 17 mg/dL (8.4-25.7); Calc. Creatinine Clearance 47 mL/min (70-130); Calcium 8.7 mg/dL (7.8-10.44); Carbon Dioxide 20 mmol/L (23-31); Chloride 109 mmol/L (98-107); Estimated GFR-MDRD 51; Glucose 133 mg/dL (83-110); Potassium 4.3 mmol/L (3.5-5.1); Sodium 139 mmol/L (136-145)
--- NOTE | 2018-09-29 11:40 | PRG ---
DATE OF SERVICE: 09/29/2018 SUBJECTIVE: The patient is feeling good. He has had no nausea or vomiting. He is eating well. OBJECTIVE: VITAL SIGNS: Temperature 98.4, pulse 103, respiratory rate 20, and blood pressure 149/88. HEENT: Unchanged. CHEST: Clear. CARDIOVASCULAR: Regular rate and rhythm. ABDOMEN: Soft, nontender without organomegaly or masses. LABORATORY DATA: Laboratories show a hemoglobin of 8.8 and hematocrit 26.7. ASSESSMENT: 1. Upper gastrointestinal bleed. 2. Severe reflux esophagitis with multiple ulcerations. 3. Long segment Doll esophagus. RECOMMENDATIONS: 1. Continue proton pump inhibitor twice daily. 2. Resume Eliquis in 1 week. 3. Repeat EGD as an outpatient in 2 months. 4. Stable for discharge from GI standpoint. 5. We will sign off. Job ID: [id number]
[2018-09-29 15:58] VITALS: BP 160/91; TEMP 97.9
--- NOTE | 2018-10-01 09:35 | OP ---
DATE OF PROCEDURE: 09/28/2018 PREOPERATIVE DIAGNOSES: 1. Melena. 2. Severe anemia. DESCRIPTION OF PROCEDURE: After informed consent was obtained, the patient was placed in a left lateral decubitus position. Anesthesia was administered per the Anesthesia Department. Forward-viewing endoscope was inserted into esophagus under direct visualization with ease and passed to the second portion of the duodenum with ease. Second portion of the duodenum and duodenal bulb were normal. The pylorus, antrum, body, fundus, and cardia were normal. Retroflexion in the stomach showed a small hiatal hernia. The esophagus displayed long segment Doll esophagus extending from 36 cm to 29 cm. Biopsies were taken in a 4-quadrant random fashion at 2 cm increments. In the esophagus, multiple ulcerations were noted. All these ulcers had clean white bases. No active bleeding or visible vessels. ASSESSMENT: 1. 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 2. Multiple esophageal ulcers without stigmata of recent hemorrhage. 3. Small hiatal hernia. RECOMMENDATIONS: 1. PPI b.i.d. 2. Repeat EGD in 6 to 8 weeks to document esophageal ulcer healing. 3. May resume Eliquis in 2 weeks. 4. Resume diet. Job ID: [id number]
== END 2018-09-29 15:55 | disposition home or self-care (01) ==
LOC: ERS 08:53 → T4-B 14:53
PROVIDERS: ADMIT Internal Medicine Infectious Disease; ATTEND Internal Medicine Infectious Disease
PROC: 0DB58ZX Excision of Esophagus, Via Natural or Artificial Opening Endoscopic, Diagnostic (ICD-10-PCS; principal; 2018-09-28)
DX: K22.70 Barrett's esophagus without dysplasia (principal); K44.9 Diaphragmatic hernia without obstruction or gangrene; K21.0 Gastro-esophageal reflux disease with esophagitis; K92.1 Melena; I25.10 Atherosclerotic heart disease of native coronary artery without angina pectoris; E78.5 Hyperlipidemia, unspecified; N40.0 Benign prostatic hyperplasia without lower urinary tract symptoms; G89.29 Other chronic pain; M54.5 Low back pain; I48.91 Unspecified atrial fibrillation; I13.0 Hypertensive heart and chronic kidney disease with heart failure and stage 1 through stage 4 chronic kidney disease, or unspecified chronic kidney disease; N18.9 Chronic kidney disease, unspecified; I50.33 Acute on chronic diastolic (congestive) heart failure; D62 Acute posthemorrhagic anemia; Z87.891 Personal history of nicotine dependence; Z79.899 Other long term (current) drug therapy; Z88.0 Allergy status to penicillin; Z88.8 Allergy status to other drugs, medicaments and biological substances; Z95.0 Presence of cardiac pacemaker
CPT/HCPCS: 43239; 74176; 80048 ×2; 80053; 81003; 82274; 85014; 85018; 85025 ×3; 88305; 88312; 88313; 96361 ×3; 96374; 96375 ×2; 96376 ×3; 97139; 99285; G0378; 36415; C9113; J2001; J2270; J2405; J2704

== ENCOUNTER 2018-11-06 12:44 | Outpatient (CLI) | payer MEDICARE, OTHER ==
--- NOTE | 2018-11-06 17:23 | MRI ---
MRI OF THE LUMBAR SPINE WITHOUT CONTRAST 11/06/18 HISTORY: S32.432D - closed displaced fracture of left acetabulum. COMPARISON: None. FINDINGS: There appears to be a healing fracture of the sacrum with edema. A transversely oriented component of S1 as well as vertical component of S1-S3 bilaterally. On the right side there is extension to zone 3. The sacral fracture is incompletely evaluated on this examination. The lumbar spine is without marrow infiltrative process. There is narrowing of the L1-L5 interspinous spaces. The conus medullaris terminates at the superior end plate of L1. Levels are as follows: L1-2: Mild disc desiccation. Moderate facet arthropathy. Mild bilateral neural foraminal narrowing du e to bilateral posterior subforaminal disc osteophyte complexes. L2-3: There is moderate degenerative disc space height loss. Circumferential disc bulge. Bilateral fontaine bforaminal and posterior disc osteophyte complexes and moderate facet arthropathy causing moderate bi lateral neural foraminal narrowing. Mild ligamentum flavum hypertrophy. L3-4: Severe facet arthropathy. Bilateral subforaminal posterior disc osteophyte complexes are presen t. Moderate disc desiccation. Circumferential disc bulge. Moderate to severe bilateral neural foramin al narrowing. L4-5: There is degenerative grade I anterolisthesis. Moderate to severe facet arthropathy. Bilateral subforaminal posterior disc osteophyte complexes. Severe right and moderate to severe left sided neur al foraminal narrowing. There is abutment of the exiting and traversing nerve roots bilaterally. L5-S1: Mild posterior degenerative disc space height loss. Mild facet arthropathy. No neural foramina l or spinal canal narrowing. IMPRESSION: 1. Bilateral stable insufficiency fractures are incompletely evaluated and the right sided fract ures extend from zone 1 through zone 3. These are new. 2. Moderate spondylosis as described above. 3. Narrowing of the interspinous spaces at L2-L5. POS: [facility]
== END 2018-11-06 12:45 | disposition home or self-care (01) ==
LOC: MRI 12:44
PROVIDERS: ATTEND Orthopaedic Surgery
DX: S32.432D Displaced fracture of anterior column [iliopubic] of left acetabulum, subsequent encounter for fracture with routine healing (principal); M47.816 Spondylosis without myelopathy or radiculopathy, lumbar region; M84.48XA Pathological fracture, other site, initial encounter for fracture; M48.061 Spinal stenosis, lumbar region without neurogenic claudication
CPT/HCPCS: 72148